=== PATIENT | male | born 1970 | race Caucasian/White ===

== ENCOUNTER 2017-12-17 10:58 | Emergency (ER) | payer OTHER, BC ==
[~2017-12-17] VITALS: Ht 175.3 cm; Wt 86.5 kg
[~2017-12-17 10:58] MED LIST: OXYC-57 PO; PRTUNK
[2017-12-17 11:07] VITALS: TEMP 36.5; Ht 175.3 cm; Wt 86.5 kg
[2017-12-17] MEDS ORDERED: KETOROLAC TROMETHAMINE 60 MG/2 ML VIAL IM STA (11:31)
[2017-12-17] MEDS ORDERED: PRT/20 PO (11:55)
[2017-12-17] MEDS ORDERED: AMLO5TAB4 PO (11:55)
[2017-12-17] MEDS ORDERED: CHOL1000 PO (11:55)
[2017-12-17] MEDS ORDERED: PYRI100T4 PO (11:55)
[2017-12-17] MEDS ORDERED: ASPI81TA28 PO (11:55)
--- NOTE | 2017-12-17 11:57 | DIAGNOSTIC IMAGING REPORT ---
CT OF THE CERVICAL SPINE WITHOUT CONTRAST CLINICAL HISTORY: Neck and right shoulder pain. Radicular symptoms. COMPARISON STUDY: Cervical spine radiographs January 08, 2012. TECHNIQUE: Helical axial images of the cervical spine were obtained without IV contrast. Sagittal and coronal reconstructions were viewed. A dose lowering technique was utilized adhering to the principles of ALARA. FINDINGS: There is reversal of the normal cervical lordosis. Craniocervical junction is intact. There are postoperative findings consistent with C5-C7 anterior discectomy and fusion. Hardware is intact. Fusion appears complete. There are no unexpected radiopaque foreign bodies. There is no fracture or suspicious lesion within the cervical spine by CT. Central canal and neural foramen are suboptimally assessed by CT. There is probable moderate central canal stenosis at C4-C5 due to disc osteophyte complex. There is suspected mild central canal stenosis at C3-C4. There is suspected severe bilateral neural foraminal narrowing at C3-C4 due to uncovertebral hypertrophy. There is moderate to severe right neural foraminal narrowing at C4-C5. IMPRESSION: 1. No acute cervical spine fracture or subluxation. 2. Status post C5-C7 anterior discectomy and fusion. Hardware intact. Fusion complete. 3. Moderate multilevel degenerative disc disease and facet arthrosis. Suboptimal evaluation of the central canal due to CT technique. Suspected moderate central canal stenosis at C4-C5 due to posterior disc osteophyte complex. 4. Suspected severe multilevel neural foraminal stenosis, most pronounced at the bilateral C3-C4 and right C4-C5 neural foramen. Electronically signed by: Chad Villeda M.D. 12/17/2017 11:56 AM Dictated Date/Time: 12/17/2017 11:49 AM
--- NOTE | 2017-12-17 12:23 | DIAGNOSTIC IMAGING REPORT ---
R SHOULDER MIN 2 VIEWS ROUTINE HISTORY: 47 years-old Male same acute left shoulder pain COMPARISON: Chest radiograph 01/06/2012 TECHNIQUE: 3 views of the right shoulder FINDINGS: Mild glenohumeral and AC joint degenerative changes without acute fracture or dislocation. The imaged lung wynn appear clear. IMPRESSION: No acute fracture or dislocation. The above report was generated using voice recognition software. It may contain grammatical, syntax or spelling errors. Electronically signed by: Fran Vergara M.D. 12/17/2017 12:21 PM Dictated Date/Time: 12/17/2017 12:20 PM
[2017-12-17] MEDS ORDERED: KETO10TA PO (13:04)
[2017-12-17 13:06] VITALS: BP 119/79; PULSE 70; O2SAT 98
--- NOTE | 2017-12-17 19:24 | EMERGENCY ROOM VISIT NOTE ---
ED Visit Note First contact with patient: 11:22 Chief Complaint: Neck pain. History of Present Illness: Mr. Gloria is a 47-year-old white male who ambulates into the ED complaining of left-sided neck pain and left shoulder pain. Historically patient reports she has a history of a previous cervical spine discectomy from 7 years ago without complication. Patient reports he was at work yesterday pushing a heavy piece of equipment; weighing over 100 pounds, and felt a popping sensation in the left side of his neck i.e. trapezius muscle. He reports he had some mild pain but when he arrived home from work this morning the pain was much more severe. Currently he is complaining of left-sided neck pain throughout the upper and lower portion of the trapezius and in the left shoulder around the AC joint and the humeral head. He describes his pain as a sharp sensation. He rates his discomfort 7/10. The pain is radiating down into the upper area of the trapezius. He reports taken ibuprofen without relief of his discomfort. He has not identified any alleviating factors related to the pain. Associated with the pain he feels like he has weakness in the shoulder, limited motion of the shoulder in all directions and feels that like the superior portion of the shoulder is numb. He denies fevers, chills, sweats, upper respiratory tract symptoms, recent direct trauma, skin eruptions, skin color changes, upper respiratory tract symptoms, shortness of breath, nausea/vomiting, left upper extremity paresthesias Review of Systems: As noted above in history of present illness. 8 body systems were reviewed and found to be negative as noted above. Past Medical History: As previously noted, hypertension, unspecified stomach disorder. Current Medications: Norvasc sick, Protonix, vitamins, aspirin. Allergies to Medications: Patient denies. Social History: Patient is currently employed; he feels safe in his home environment; he admits to tobacco and alcohol use. Physical Examination: Vital Signs: Date Time Temp Pulse Resp B/P (MAP) Pulse Ox O2 Delivery O2 Flow Rate FiO2 12/17/17 13:06 70 18 119/79 98 Room Air 12/17/17 11:07 36.5 88 16 129/86 98 Room Air GENERAL: 47-year-old male in mild to moderate distress due to pain, nontoxic- appearing, afebrile and hemodynamically stable. NEUROLOGICAL: Awake, alert and oriented to person, place and time. Answering questions appropriately and following commands. Normal gait. SKIN: Warm, dry and pink. No soft tissue eruptions or trauma noted. HEENT: Atraumatic and normocephalic. BACK: No tenderness over the bony cervical and thoracic spine. Moderate tenderness to the upper and middle portion of the trapezius muscle with spasm. No CVA tenderness. THORAX: Lungs sounds are clear to auscultation and equal bilaterally with symmetrical chest wall. LEFT UPPER EXTREMITY: No gross bony deformity. As previously noted spasm throughout the upper and middle portion of the trapezius. Mild tenderness over the acromion clavicular joint. No tenderness over the humeral head, clavicle or scapula. Decreased range of motions and muscle strength in all movement except for shoulder extension because of pain. With the shoulder stabilized patient has full range of motion in flexion and extension of the elbow, pronation and supination of forearm, flexion, extension and radial and ulnar deviation of the wrists and intrinsic muscles of the fingers. Throughout the arm the skin was warm and pink and capillary refill was brisk. 2+ bicipital, tricipital and brachial radialis deep tendon reflexes. ED Course: Patient is assessed as noted above. Patient's medication list was reviewed. Patient was given 60 mg of Toradol IM for pain and ice for pain and comfort. Left Shoulder X-Rays: Were read by myself and the radiologist and shows mild glenoid and acromion clavicular joint degenerative changes with no acute fractures or dislocations. Cervical Spine CT: Was reviewed by myself and read by the radiologist showing no acute cervical spine fractures or subluxations, status post C5 C7 anterior discectomy and fusion with intact hardware and fusion complete, moderate multilevel degenerative disc disease and facet arthrosis, suspected moderate canal stenosis at the C4-C5 due to posterior disc osteophyte complex and suspected severe multilevel foraminal stenosis most prominent at the bilateral C3-C4 area and right C4-C5 neural foraminal area. Patient was placed in a shoulder sling. Patient was given ice and 60 mg of Toradol IM for pain. Patient was educated about today's findings and instructed on his treatment plan ; he verbalizes understanding and agreement with this plan. Clinical Impression: Left shoulder pain. Left lateral neck pain. Work-related injury. Decision-Making: Initially my differential diagnosis I considered AC joint separation, glenohumeral joint dislocation/subluxation, muscle strain, cervical radiculopathy and other causes. Disposition: Patient discharged home in stable condition; prior to departure he was reassessed and subjectively reported he was feeling slightly better and rated his discomfort 5/10. Plan: Patient was encouraged alternate 650 mg of acetaminophen and 10 mg of Toradol every 3 hours as needed for pain. Patient was prescribed Flexeril 10 mg every 6 hours for muscle spasm. Other comfort measures were discussed with the patient including ice, rest and sling use. Patient was encouraged to follow-up with Workmen's Compensation in 3-4 days for recheck and return to work instruction. Patient was encouraged return the ED for worsening/uncontrolled pain, uncontrolled muscle spasm, arm/hand weakness/numbness/tingling or any new/ concerning symptoms.
== END 2017-12-17 13:21 | disposition home or self-care (01) ==
LOC: C.EDB 10:59 → C.EDD 13:21
DX: M25.512 Pain in left shoulder (principal); M54.2 Cervicalgia; X50.0XXA Overexertion from strenuous movement or load, initial encounter; Y92.89 Other specified places as the place of occurrence of the external cause; Y99.0 Civilian activity done for income or pay; I10 Essential (primary) hypertension; Z79.899 Other long term (current) drug therapy; Z79.82 Long term (current) use of aspirin; Z72.0 Tobacco use